=== PATIENT | male | born 1965 | race Native Hawaiian/Other Pacific Islander ===

== ENCOUNTER 2021-05-06 12:10 | Outpatient (CLI) | payer BC ==
[2021-05-17 09:55] LABS: PLATELET COUNT 257 K/uL (142-355)
[2021-05-17 09:56] LABS: POTASSIUM 4.3 mmol/L (3.6-5.2)
== END 2021-05-06 17:00 ==
LOC: LABW 12:10
PROVIDERS: ATTEND Internal Medicine
DX: E11.9 Type 2 diabetes mellitus without complications (principal)
CPT/HCPCS: 80053; 80061; 81000; 82043; 82570; 84439; 84443; 84550; 85027